=== PATIENT | female | born 1950 | race Caucasian/White ===

== ENCOUNTER → 2020-09-29 | Outpatient (CLI) | payer MEDICARE ==
--- NOTE | 2020-09-29 09:51 | BD ---
EXAMINATION TYPE: Axial Bone Density DATE OF EXAM: 09/29/2020 COMPARISON: 10.18.2000 CLINICAL HISTORY: 69 YR OLD FEMALE.....ICD-10 CODE: N95.1 POST MENOPAUSAL Height: 66 Weight: 257 FRAX RISK QUESTIONS: Family History (Parent hip fracture): YES History of Fracture in Adulthood: YES RISK FACTORS HISTORY OF: HX OF TIB/FIB FX >50 YRS OLD Family History of Osteoporosis: YES, MOTHER WITH HIP FXS , AND SISTER ALSO Postmenopausal woman: YES, AT 52 YRS OLD Lost more than 2 inches in height since high school: YES Hyperparathyroidism: NO Adrenal Insufficiency: NO MEDICATIONS: Additional Medications: NOTHING TO NOTE HERE Additional History: NOTHING TO NOTE HERE EXAM MEASUREMENTS: Bone mineral densitometry was performed using the Tysdo System. Bone mineral density as measured about the Lumbar spine is: ----- L1-L4(G/cm2): 1.235 T Score Values are as follows: ----- L1: 0.6 ----- L2: -0.6 ----- L3: 1.1 ----- L4: 0.5 ----- L1-L4: 0.5 Bone mineral density has: Decreased -2.7ince study of: 10.18.2000 Bone mineral density about the R hip (g/cm2): 1.098 Bone mineral density about the L hip (g/cm2): 1.101 T Score values are as follows: -----R Neck: 0.7 -----L Neck: 0.1 -----R Total: 0.7 -----L Total: 0.7 Bone mineral density has: Decreased -0.7ince study of: 10.18.2000 FRAX%s: THERE IS A 14.5% CHANCE FOR A MAJOR OSTEOPOROTIC FX AND A 1.0% FOR HIP.....PROBABILITY FOR FX IN 10 YRS TIME IMPRESSION: Normal bone mineral density. NOTE: T-SCORE=SD OF THE YOUNG ADULT MEAN.
--- NOTE | 2020-09-29 11:48 | MM ---
Reason for exam: screening (asymptomatic). Last mammogram was performed 6 years ago. History: Patient is postmenopausal. Family history of breast cancer in aunt. Physical Findings: A clinical breast exam by your physician is recommended on an annual basis and results should be correlated with mammographic findings. MG 3D Screening Mammo W/Cad Bilateral CC and MLO view(s) were taken. Prior study comparison: October 07, 2014, bilateral MG screening mammo w CAD. There is a spiculated mass in the left upper outer quadrant, posterior depth and ultrasound is recommended. There is a small asymmetry in the right upper outer quadrant at middle depth and ultrasound is recommended. ASSESSMENT: Incomplete: need additional imaging evaluation, BI-RAD 0 RECOMMENDATION: Ultrasound of both breasts.
== END | disposition home or self-care (01) ==
LOC: RADMAMWWP 07:21
PROVIDERS: ATTEND Family Medicine
DX: Z12.31 Encounter for screening mammogram for malignant neoplasm of breast (principal); Z13.820 Encounter for screening for osteoporosis; Z78.0 Asymptomatic menopausal state; Z80.3 Family history of malignant neoplasm of breast
CPT/HCPCS: 77063; 77067; 77080

== ENCOUNTER → 2020-10-20 | Outpatient (CLI) | payer MEDICARE ==
--- NOTE | 2020-10-20 09:04 | USB ---
EXAMINATION TYPE: US breast workup limited [facility] DATE OF EXAM: 10/20/2020 COMPARISON: 09/29/2020 CLINICAL HISTORY: R92.8 abnormal mammogram. Findings: Targeted right breast ultrasound was performed from 9-12 o'clock and in the retroareolar region and a xilla for a nurse felt palpable abnormality. In the right breast at 9:00, there is a 2.0 x 0.9 x 1.8 cm isoechoic ovoid lesion which most likely represents a lipoma and follow-up ultrasound is recommend ed in 6 months. Targeted left breast ultrasound was performed from 12-3 o'clock and in the retroareolar region and ax illa. In the left breast at 3:00, there is a 1.5 x 1.2 x 1.8 cm irregular hypoechoic mass with associ ated architectural distortion which corresponds well in size, location and morphology to the mass on mammogram and is highly suspicious for malignancy. Ultrasound-guided biopsy is recommended. IMPRESSION: 1. Ultrasound-guided biopsy is recommended for the spiculated mass in the left breast at 3:00. 2. Follow-up right breast ultrasound is recommended in 6 months for the probable lipoma. BI-RADS 5, highly suspicious.
== END | disposition home or self-care (01) ==
LOC: RADUSWWP 08:19
PROVIDERS: ATTEND Family Medicine
DX: N63.10 Unspecified lump in the right breast, unspecified quadrant (principal); N63.20 Unspecified lump in the left breast, unspecified quadrant

== ENCOUNTER → 2020-11-09 | Day surgery (SDC) | payer MEDICARE ==
[2020-11-09 12:14] VITALS: RESP 16
[2020-11-09 13:41] VITALS: BP 135/68; PULSE 65; TEMP 98.2
--- NOTE | 2020-11-09 14:01 | USB ---
EXAMINATION TYPE: US biopsy breast VAD LT DATE OF EXAM: 11/09/2020 CLINICAL HISTORY: R92.8 Abnormal mammogram. TECHNIQUE: Ultrasound guided vaccuum assisted core biopsy of left breast. COMPARISON: 10/20/2020 FINDINGS: The ultrasound guided core biopsy procedure was explained to the patient. The risks, benefits, alternatives were discussed. An informed consent was then obtained. Timeout was performed. The patient was placed in supine positioning for imaging and for the procedure. The overlying skin was prepped with betadine and sterilely draped in usual sterile fashion. Lidocaine 1% was used as anesthetic into the skin and deeper breast tissue up to area of concern in the breast. A small skin swati was made with surgical scalpel. Under ultrasound guidance, a 12-gauge vacuum assisted biopsy device was used to obtain 7 core samples. A biopsy clip was left in lesion. Coil clip was placed. Good hemostasis was obtained with direct pressure. Discharge instructions were discussed with the patient. The patient will follow up with the referring physician for results. Postprocedure mammogram: The patient was transferred to mammography for physician ordered post procedure mammogram for clip placement verification. The clip is in the expected region of the biopsy. The patient tolerated the procedure well without any immediate complication. The patient was discharged to home in stable condition. IMPRESSION: 1. Successful ultrasound guided biopsy left breast. Recommendations: 1. Recommendations are pending pathology results. Pathology Results: Malignant LEFT BREAST, THREE O'CLOCK, ULTRASOUND GUIDED CORE BIOPSY: Invasive moderately differentiated ductal carcinoma (Grade 2). See Surgical Pathology Cancer Case Summary. Recommendation Surgical consult of the left breast. SPENCER
--- NOTE | 2020-11-14 09:38 | MM ---
Reason for exam: additional evaluation requested from abnormal screening. Last mammogram was performed 1 month ago. History: Patient is postmenopausal. Family history of breast cancer in aunt. MG Diagnostic Mammo LT Wo CAD CC and MLO view(s) were taken of the left breast. Prior study comparison: September 29, 2020, bilateral MG 3d screening mammo w/cad. October 07, 2014, bilateral MG screening mammo w CAD. ASSESSMENT: Post procedure mammogram for marker placement RECOMMENDATION: Surgical consultation of the left breast. SPENCER
== END ==
LOC: RADUSWWP 11:57
PROVIDERS: ATTEND Family Medicine
DX: D05.12 Intraductal carcinoma in situ of left breast (principal); R92.8 Other abnormal and inconclusive findings on diagnostic imaging of breast
CPT/HCPCS: 88305; 88342; 88341; 77065; 19083; A4648; J2001

== ENCOUNTER → 2020-12-28 | Outpatient (CLI) | payer MEDICARE ==
--- NOTE | 2020-12-28 14:43 | XR ---
EXAMINATION TYPE: XR chest 2V DATE OF EXAM: 12/28/2020 COMPARISON: 01/25/2010 HISTORY: 70-year-old female C5 0.412 TECHNIQUE: Frontal and lateral views FINDINGS: Postsurgical clips relating to lumpectomy of the left breast. Trace left apical pleural-parenchymal s carring. Heart upper limits of normal in size. Aorta and pulmonary vasculature within normal limits. Mild interstitial prominence has a chronic appearance. No consolidation or pleural effusion. IMPRESSION: Left breast lumpectomy changes. There are chronic appearing changes without acute cardiopulmonary pro cess.
== END | disposition home or self-care (01) ==
LOC: RADXRMAIN 09:55
PROVIDERS: ATTEND Internal Medicine Medical Oncology
DX: Z85.3 Personal history of malignant neoplasm of breast (principal); Z90.12 Acquired absence of left breast and nipple
CPT/HCPCS: 71046

== ENCOUNTER → 2021-10-31 | Outpatient (CLI) | payer MEDICARE ==
--- NOTE | 2021-10-31 14:52 | MM ---
Reason for Exam: Follow-up at short interval from prior study. Last mammogram was performed 1 year(s) and 1 month(s) ago. Patient History: Menarche at age 13. First Full-Term at age 25. Postmenopausal. Breast cancer, left, age 70. 12/07/2020, Lumpectomy on the Left side. 11/09/2020, Malignant Core Biopsy on the left side. 2020, Radiation Therapy on the left side. Maternal aunt had breast cancer. Tissue Density: There are scattered fibroglandular densities. Findings: Analyzed By CAD. Skin thickening with post biopsy and lumpectomy changes involving the upper outer quadrant of the left breast. Right breast demonstrates no dominant mass or architectural distortion. Benign calcifications are noted on the left. Fatty attenuation upper outer quadrant right breast may correspond with history of previous lipoma. Overall Assessment: Incomplete: need additional imaging evaluation, BI-RAD 0 Management: Diagnostic Breast Ultrasound of both breasts. A clinical breast exam by your physician is recommended on an annual basis and results should be correlated with mammographic findings. This exam should not preclude additional follow-up of suspicious palpable abnormalities. Results were given to the patient verbally at the time of exam. Electronically signed and approved by: Jose King M.D. Radiologis
--- NOTE | 2021-10-31 15:33 | USB ---
Reason for Exam: Follow-up at short interval from prior study. Patient History: Menarche at age 13. First Full-Term at age 25. Postmenopausal. Breast cancer, left, age 70. 12/07/2020, Lumpectomy on the Left side. 11/09/2020, Malignant Core Biopsy on the left side. 2020, Radiation Therapy on the left side. Maternal aunt had breast cancer. Technique: Method: Targeted. Prior Study Comparison: 10/07/2014 Bilateral Screening Mammogram, [facility]. 09/29/2020 Bilateral Screening Mammogram, [facility]. 11/09/2020 Left Diagnostic Mammogram, [facility]. Findings: Right breast: There is a 2.2 cm isoechoic nodule similar to the prior study in concordant with fat attenuation on the mammograms lipoma. Left breast: Within the left breast there is a large 3.2 cm mixed complex collection at the 3:00 position of the left breast.. This lumpectomy site. Overall Assessment: Suspicious, BI-RAD 4 Management: Ultrasound Core Biopsy of the left breast. A clinical breast exam by your physician is recommended on an annual basis and results should be correlated with mammographic findings. Electronically signed and approved by: Jose King M.D. Radiologis
== END | disposition home or self-care (01) ==
LOC: RADMAMWWP 14:12
PROVIDERS: ATTEND Internal Medicine Medical Oncology
DX: R92.8 Other abnormal and inconclusive findings on diagnostic imaging of breast (principal); Z78.0 Asymptomatic menopausal state; Z80.3 Family history of malignant neoplasm of breast
CPT/HCPCS: 77066; 76642; G0279; 77062

== ENCOUNTER → 2021-11-20 | Day surgery (SDC) | payer MEDICARE ==
--- NOTE | 2021-11-28 13:30 | USB ---
Pathology Description: Location: 3 o'clock, upper outer quadrant. Marker Left Behind. Needle Type: Mammotome Cores: 5 Gauge: 13 The procedure of ultrasound guided core biopsy and aspiration was explained to the patient. Benefits, alternatives, and risks were discussed. An informed consent was then obtained. The patient was placed right decubitus positioning for imaging and for the procedure. The overlying skin was prepped and draped in usual sterile fashion. Lidocaine was used as anesthetic into the skin and subcutaneous tissue up to area of concern in the 3:00 left breast. The large suspected seroma measuring up to 3.1 cm is identified. Along the periphery, there is an area of nodular soft tissue thickening that is targeted for biopsy. Utilizing 13-gauge vacuum-assisted mammotome biopsy gun and ultrasound guidance, 5 core samples were obtained of the peripheral area of thickening, suspected scar. The seroma partially collapsed. A coil Hydromark clip was left at the site of biopsy. Some residual fluid was identified and targeted for aspiration utilizing ultrasound guidance and an 18-gauge spinal needle. Aspiration yielded a total of 2 mL bloody fluid which is labeled and sent for laboratory analysis. The patient tolerated the procedure well without any immediate complication. The patient was kept in the radiology department for short stay after the procedure and then discharged home in stable condition. Postprocedure mammogram: The patient was transferred to mammography for physician ordered post procedure mammogram for clip placement verification. Postprocedure mammogram shows the patient's seroma to have become much less defined and smaller. Clip is in place. Impression: Successful, uncomplicated ultrasound guided core biopsy of soft tissue thickening involving the 3:00 suspected left breast seroma. Subsequent aspiration with 2 mL bloody fluid obtained. Both pathology and cytology are pending. Full pathology results to follow. Pathology Results: Result: Benign, Foreign body (reaction). LEFT BREAST, 3:00 POSITION, ULTRASOUND GUIDED CORE BIOPSY: Fibrous scar with granulation tissue, evidence of remote hemorrhage and focal refractile foreign material with foreign body type inflammatory reaction, compatible with prior procedure related changes. Current specimen negative for diagnostic malignancy. See note. Pathology Description: Location: 3 o'clock, upper outer quadrant. 2cc. Pathology Results: Result: Benign, Inflammation. LEFT BREAST, 3:00 POSITION, ASPIRATION: Limited specimen with peripheral blood elements, scattered inflammatory cells and foamy/pigmented macrophages (see note). Tissue Density: Left: There are scattered fibroglandular densities. Overall Assessment: Benign Assessment: MG diagnostic mammo LT wo CAD. - Left: Benign, BI-RAD 2. Management: Diagnostic Breast Ultrasound of the left breast in 6 months. Electronically signed and approved by: Licha Barillas M.D. Radiologist [email or web address]
== END ==
LOC: RADUSWWP 12:42
PROVIDERS: ATTEND Internal Medicine Medical Oncology
DX: C50.412 Malignant neoplasm of upper-outer quadrant of left female breast (principal); L90.5 Scar conditions and fibrosis of skin
CPT/HCPCS: 88305; 88173; 77065; 19000; 19083; A4648; 76942

== ENCOUNTER → 2022-05-07 | Outpatient (CLI) | payer MEDICARE ==
--- NOTE | 2022-05-07 10:55 | USB ---
Reason for Exam: Follow-up at short interval from prior study. Patient History: Menarche at age 13. First Full-Term at age 25. Postmenopausal. Patient has history of breast feeding. Breast cancer, left, age 70. 11/20/2021, Benign US biopsy breast VAD LT on the left side. 11/20/2021, Benign US breast aspiration single LT on the left side. 12/07/2020, Lumpectomy on the Left side. 11/09/2020, Malignant Core Biopsy on the left side. 2020, Radiation Therapy on the left side. Maternal aunt had breast cancer, age 56. Prior Study Comparison: 11/09/2020 Left Diagnostic Mammogram, [facility]. 10/31/2021 Bilateral MG 3D diag mammo w/cad [facility], [facility]. 11/20/2021 Left MG diagnostic mammo LT wo CAD., [facility]. Findings: The upper outer quadrant of the left breast, the axilla of the left breast and the retroareolar of the left breast were scanned. Targeted left breast ultrasound from 12-4:00 was performed. Additional evaluation of the nipple and axilla. There is a seroma at the lumpectomy site in the left breast at 3:00 4 cm from the nipple measuring 2.7 x 2.3 x 3.3 cm without internal color flow. No suspicious adenopathy. Overall Assessment: Benign, BI-RAD 2 Management: Diagnostic Mammogram of both breasts in 6 months. A clinical breast exam by your physician is recommended on an annual basis and results should be correlated with mammographic findings. This exam should not preclude additional follow-up of suspicious palpable abnormalities. Results were given to the patient verbally at the time of exam. Electronically signed and approved by: Migue Hargrove D.O.
== END | disposition home or self-care (01) ==
LOC: RADUSWWP 10:10
PROVIDERS: ATTEND Internal Medicine Medical Oncology
DX: C50.412 Malignant neoplasm of upper-outer quadrant of left female breast (principal); Z80.3 Family history of malignant neoplasm of breast; Z78.0 Asymptomatic menopausal state; Z98.890 Other specified postprocedural states

== ENCOUNTER → 2022-11-08 | Outpatient (CLI) | payer MEDICARE ==
--- NOTE | 2022-11-08 12:03 | MM ---
Reason for Exam: Hx of breast cancer, conservation therapy. Last mammogram was performed 1 year(s) and 1 month(s) ago. Patient History: Menarche at age 13. First Full-Term at age 25. Postmenopausal. Patient has history of breast feeding. Breast cancer, left, age 70. 11/20/2021, Benign US biopsy breast VAD LT on the left side. 11/20/2021, Benign US breast aspiration single LT on the left side. 12/07/2020, Lumpectomy on the Left side. 11/09/2020, Malignant Core Biopsy on the left side. 2020, Radiation Therapy on the left side. Maternal aunt had breast cancer, age 56. Tissue Density: There are scattered fibroglandular densities. Findings: Analyzed By CAD. Postsurgical and posttreatment changes left breast. Focal asymmetry at the surgical site likely scar. Microclip is present here after patient's prior aspiration. Short interval follow-up could reassess this area. Otherwise, no significant change. Overall Assessment: Probably benign, BI-RAD 3 Management: Diagnostic Mammogram of the left breast in 6 months. . Results were given to the patient verbally at the time of exam. Patient should continue monthly self-breast exams. A clinical breast exam by your physician is recommended on an annual basis. This exam should not preclude additional follow-up of suspicious palpable abnormalities. Note on Padmini scores and lifetime risk: 1. A Padmini score greater than 3% is considered moderate risk. If this is the case, consider specialist referral to assess eligibility for a risk reducing agent. 2. If overall lifetime risk for the development of breast cancer is 20% or higher, the patient may qualify for future screening with alternating mammogram and breast MRI. Electronically signed and approved by: Licha Barillas M.D. Radiologist
== END | disposition home or self-care (01) ==
LOC: RADMAMWWP 10:22
PROVIDERS: ATTEND Internal Medicine Medical Oncology
DX: C50.412 Malignant neoplasm of upper-outer quadrant of left female breast (principal); Z78.0 Asymptomatic menopausal state; Z80.3 Family history of malignant neoplasm of breast
CPT/HCPCS: 77066; G0279; 77062

== ENCOUNTER → 2023-02-13 | Outpatient (CLI) | payer MEDICARE ==
[2023-02-13 17:18] LABS: HCT 46.1 % (37.2-46.3); HGB 14.7 g/dL (12.0-15.0); MCH 29.3 pg (27.0-32.0); MCHC 31.9 g/dL (32.0-37.0); MCV 91.8 FL (80.0-97.0); Mean Platelet Volume 11.9 FL (9.5-12.2); NRBC Per 100 WBC 0 X 10*3/uL (0.00-0.01); Platelet Count 159 X 10*3/uL (140-440); RBC 5.02 X 10*6/uL (4.10-5.20); WBC 4.71 X 10*3/uL (4.50-10.00)
[2023-02-14 02:42] LABS: ALT 18 U/L (8-44); AST 17 U/L (13-35); Albumin 4.2 g/dL (3.8-4.9); Albumin/Globulin Ratio 1.91 Ratio (1.60-3.17); Alkaline Phosphatase 87 U/L (41-126); Blood Urea Nitrogen 15.4 mg/dL (9.0-27.0); Calcium 9.6 mg/dL (8.7-10.3); Carbon Dioxide 25.5 mmol/L (21.6-31.8); Chloride 106 mmol/L (96-109); Chol/HDL Ratio 3.21 Ratio; Globulin 2.2 g/dL (1.6-3.3); Glucose 90 mg/dL (70-110); LDL Cholesterol,Calculated 79.9 mg/dL (0.0-131.0); Potassium 4.4 mmol/L (3.5-5.5); Sodium 142 mmol/L (135-145); Total Protein 6.4 g/dL (6.2-8.2)
== END | disposition home or self-care (01) ==
LOC: LABWHC1 10:39
PROVIDERS: ATTEND Family Medicine
DX: Z00.00 Encounter for general adult medical examination without abnormal findings (principal)
CPT/HCPCS: 36415; 80053; 80061; 83036; 84443; 85027

== ENCOUNTER → 2023-05-15 | Outpatient (CLI) | payer MEDICARE ==
--- NOTE | 2023-05-15 09:42 | MM ---
Reason for Exam: Follow-up at short interval from prior study. Last screening mammogram was performed 6 month(s) ago. Patient History: Menarche at age 13. First Full-Term at age 25. Postmenopausal. Patient has history of breast feeding. Breast cancer, left, age 70. 11/20/2021, Benign US biopsy breast VAD LT on the left side. 11/20/2021, Benign US breast aspiration single LT on the left side. 12/07/2020, Lumpectomy on the Left side. 11/09/2020, Malignant Core Biopsy on the left side. 2020, Radiation Therapy on the left side. Maternal aunt had breast cancer, age 56. Prior Study Comparison: 10/31/2021 Bilateral MG 3D diag mammo w/cad [facility], [facility]. 11/20/2021 Left MG diagnostic mammo LT wo CAD., [facility]. 11/08/2022 Bilateral MG 3D diag mammo w/cad [facility], [facility]. Tissue Density: Left: There are scattered fibroglandular densities. Findings: Analyzed By CAD. Postprocedure changes left breast with stable biopsy clip and surgical clips. No new suspicious masses, calcifications or distortions. Overall Assessment: Benign, BI-RAD 2 Management: Screening Mammogram of both breasts in 1 year. Results were given to the patient verbally at the time of exam. Patient should continue monthly self-breast exams. A clinical breast exam by your physician is recommended on an annual basis. This exam should not preclude additional follow-up of suspicious palpable abnormalities. Note on Padmini scores and lifetime risk: 1. A Padmini score greater than 3% is considered moderate risk. If this is the case, consider specialist referral to assess eligibility for a risk reducing agent. 2. If overall lifetime risk for the development of breast cancer is 20% or higher, the patient may qualify for future screening with alternating mammogram and breast MRI. Electronically signed and approved by: Dimitrios Weinstein DO
== END | disposition home or self-care (01) ==
LOC: RADMAMWWP 09:23
PROVIDERS: ATTEND Internal Medicine Medical Oncology
DX: C50.412 Malignant neoplasm of upper-outer quadrant of left female breast (principal); R92.322 Mammographic fibroglandular density, left breast; Z80.3 Family history of malignant neoplasm of breast; Z78.0 Asymptomatic menopausal state
CPT/HCPCS: 77065; G0279; 77061

== ENCOUNTER → 2023-12-04 | Outpatient (CLI) | payer MEDICARE ==
--- NOTE | 2023-12-10 11:50 | MM ---
Reason for Exam: Hx of breast cancer, conservation therapy. Last screening mammogram was performed 12 month(s) ago. Patient History: Menarche at age 13. First Full-Term at age 25. Postmenopausal. Patient has history of breast feeding. Breast cancer, left, age 70. Previous chest radiation therapy at age 70. 11/20/2021, Benign US biopsy breast VAD LT on the left side. 11/20/2021, Benign US breast aspiration single LT on the left side. 12/07/2020, Lumpectomy on the Left side. 11/09/2020, Malignant Core Biopsy on the left side. 2020, Radiation Therapy on the left side. Maternal aunt had breast cancer, age 56. Prior Study Comparison: 10/07/2014 Bilateral Screening Mammogram, [facility]. 09/29/2020 Bilateral Screening Mammogram, [facility]. 11/09/2020 Left Diagnostic Mammogram, [facility]. 10/31/2021 Bilateral MG 3D diag mammo w/cad [facility], [facility]. 11/20/2021 Left MG diagnostic mammo LT wo CAD., [facility]. 11/08/2022 Bilateral MG 3D diag mammo w/cad [facility], [facility]. 05/15/2023 Left MG 3D diag mammo w/cad LT, [facility]. Tissue Density: There are scattered areas of fibroglandular density. Findings: Analyzed By CAD. Left breast surgical clips. Right breast: There is no suspicious group of microcalcifications or new suspicious mass. Left breast: There is no suspicious group of microcalcifications or new suspicious mass. Overall Assessment: Benign, BI-RAD 2 Management: Screening Mammogram of both breasts in [address] [facility] will attempt to contact patient to return for supplemental views and ultrasound if indicated. Patient should continue monthly self-breast exams. A clinical breast exam by your physician is recommended on an annual basis. This exam should not preclude additional follow-up of suspicious palpable abnormalities. Note on Padmini scores and lifetime risk: 1. A Padmini score greater than 3% is considered moderate risk. If this is the case, consider specialist referral to assess eligibility for a risk reducing agent. 2. If overall lifetime risk for the development of breast cancer is 20% or higher, the patient may qualify for future screening with alternating mammogram and breast MRI. Electronically signed and approved by: Dimitrios Weinstein DO
== END | disposition home or self-care (01) ==
LOC: RADMAMWWP 13:04
PROVIDERS: ATTEND Internal Medicine Medical Oncology
DX: C50.412 Malignant neoplasm of upper-outer quadrant of left female breast
CPT/HCPCS: 77063; 77067